=== PATIENT | female | born 1955 | race American Indian/Alaskan Native ===

== ENCOUNTER 2017-03-15 10:48 | Outpatient (CLI) | payer MEDICARE ==
--- NOTE | 2017-03-15 12:13 | Mammography Report ---
BILATERAL MAMMOGRAM: FINDINGS: Baseline mammogram. There are scattered fibroglandular densities (approximately 25%-50% glandular). No mass, distortion, suspicious calcification, or skin change is seen. CAD was utilized. IMPRESSION: Negative mammogram. There is no mammographic evidence of malignancy. RECOMMENDATION: Follow-up per ACS guidelines. BI-RADS CATEGORY: 1 = Negative ACR BI-RADS MAMMOGRAPHIC CODES: 0 = Needs additional imaging evaluation; 1 = Negative; 2 = Benign; 3 = Probably benign; 4 = Suspicious; 5 = Malignant; 6 = Known biopsy-proven malignancy COMMENT: 1. Dense breast tissue, i.e., adenosis, fibrocystic changes, etc., may obscure an underlying neoplasm. 2. Approximately 10% of cancers are not detected with mammography. 3. A negative mammography report should not delay biopsy if a clinically suspicious mass is present. COMMENT: Patient follow-up letters are generated in [employer].
== END 2017-03-15 10:49 | disposition home or self-care (01) ==
LOC: MAMMO 10:48
PROVIDERS: ATTEND Internal Medicine
DX: Z12.31 Encounter for screening mammogram for malignant neoplasm of breast (principal); I11.0 Hypertensive heart disease with heart failure; I50.9 Heart failure, unspecified; J45.909 Unspecified asthma, uncomplicated
CPT/HCPCS: 77067; G0202

== ENCOUNTER 2017-06-05 10:35 | Outpatient (CLI) | payer MEDICARE ==
--- NOTE | 2017-06-05 15:24 | Mammography Report ---
LEFT DIGITAL DIAGNOSTIC MAMMOGRAM and LEFT BREAST ULTRASOUND: 06/05/17 10:35:00 CLINICAL: Recalled for asymmetry. COMPARISON:03/15/17 screening FINDINGS: Male and spot compression MLO and CC views were performed. Satisfactory effacement of asymmetry on the CC view but a persistent oval circumscribed asymmetry on the spot MLO view. Ultrasound of the upper left breast was performed and demonstrated a benign intraparenchymal lymph node at 11 o'clock 8 cm from the nipple measuring 7 x 6 x 3 mm. It correlates with the mammographic density. No solid mass or shadowing. IMPRESSION: A benign intraparenchymal lymph node at 11 o'clock left breast. BI-RADS CATEGORY: 2 - - Benign RECOMMENDATION: Routine mammographic screening in one year. ACR BI-RADS MAMMOGRAPHIC CODES: 0 = Needs additional imaging evaluation; 1 = Negative; 2 = Benign; 3 = Probably benign; 4 = Suspicious; 5 = Malignant; 6 = Known biopsy-proven malignancy COMMENT: 1. Dense breast tissue, i.e., adenosis, fibrocystic changes, etc., may obscure an underlying neoplasm. 2. Approximately 10% of cancers are not detected with mammography. 3. A negative mammography report should not delay biopsy if a clinically suspicious mass is present. COMMENT: Patient follow-up letters are generated via our [employer] application.
== END 2017-06-05 10:36 | disposition home or self-care (01) ==
LOC: MAMMO 10:35
PROVIDERS: ATTEND Internal Medicine
DX: R92.2 Inconclusive mammogram (principal)
CPT/HCPCS: 76642; G0206

== ENCOUNTER 2020-09-26 11:14 | Outpatient (CLI) | payer MEDICARE ==
[2020-09-26 13:13] LABS: Hematocrit 42.5 % (30.3-42.9); Hemoglobin 14.1 gm/dl (10.1-14.3); Mean Corpuscular HGB Conc 33 % (30-34); Mean Corpuscular Volume 74 fl (79-97); Platelet Count 331 K/mm3 (140-440); Red Blood Count 5.76 M/mm3 (3.65-5.03); Red Cell Distribution Width 17.7 % (13.2-15.2)
[2020-09-26 15:13] LABS: Albumin 3.6 g/dL (3.9-5); Calcium 10.6 mg/dL (8.4-10.2)
== END 2020-09-26 11:15 | disposition home or self-care (01) ==
LOC: LAB 11:14
PROVIDERS: ATTEND Specialist
DX: G45.9 Transient cerebral ischemic attack, unspecified (principal)
CPT/HCPCS: 36415; 80053; 85027

== ENCOUNTER 2020-09-26 11:38 | Outpatient (CLI) | payer MEDICARE ==
--- NOTE | 2020-09-26 14:01 | Fluoroscopy Report ---
MODIFIED BARIUM SWALLOW INDICATION: DYSPHAGIA UNSPECIFIED TECHNIQUE: Swallowing was evaluated in the lateral position under direct fluoroscopy. FINDINGS: The patient was evaluated with thin liquids and puree consistencies. No aspiration or penetration was witnessed with thin liquids. The patient would not swallow the puree consistency. Limited exam. Please correlate with the formal report by speech therapy. IMPRESSION: No evidence for aspiration or penetration with thin liquids. See above. Fluoroscopic time: 1.1 minutes Number of fluoroscopic images: 1 Signer Name: Merrill Gregory Jr, MD Signed: 09/26/2020 1:56 PM Workstation Name: [id number]
== END 2020-09-26 11:39 | disposition home or self-care (01) ==
LOC: PT 11:38
PROVIDERS: ATTEND Internal Medicine
DX: R13.10 Dysphagia, unspecified (principal)
CPT/HCPCS: 36415; 74230; 80053; 85027